=== PATIENT | female | born 1980 | race Caucasian/White ===

== ENCOUNTER 2021-08-15 12:41 | Outpatient (CLI) | payer OTHER | END 2021-08-15 12:42 | disposition home or self-care (01) | LOC: CSHRAD 12:41 | PROVIDERS: ATTEND Neurological Surgery | DX: M54.16 Radiculopathy, lumbar region (principal); S30.850A Superficial foreign body of lower back and pelvis, initial encounter | CPT/HCPCS: 72110 ==